=== PATIENT | female | born 1975 | race Caucasian/White ===

== ENCOUNTER 2021-09-23 02:10 | Inpatient (IN) | payer MEDICAID ==
[~2021-09-23] VITALS: Ht 167.6 cm; Wt 65.8 kg
[2021-09-23] VITALS (14 sets, daily range): BP systolic 93–174; BP diastolic 55–106
--- NOTE | 2021-09-23 02:10 | NUR ---
Pt biba from home for potential overdose. Per EMS, 911 called by boyfriend. Boyfriend reports they were in an argument, pt was drinking alcohol and after argument she told her boyfriend she was going to take 90 of her xanax pills. Pt was refilled last 3-4 months ago. Unknown how many pills were in the bottle but pt told her boyfriend "90 pills." Per ems ingestion was around 0200 this am. Pt has hx anxiety, no other hx known. EMS reports pt unresponsive, snoring respirations, 50% O2 sat with capnography 4. Pt BVM to hospital.
[2021-09-23] MEDS ORDERED: INTUBATION KIT MC ONE (02:25)
[2021-09-23] MEDS ORDERED: NALOXONE PFS 2 MG/2 ML SYR ONE (02:35)
[2021-09-23] MEDS ORDERED: NALOXONE 0.4 MG/ML VIAL IVP ONE (02:45)
[2021-09-23] MEDS ORDERED: SUCCINYLCHOLINE CHLORIDE 200 MG/10 ML VIAL IVP ONE (02:45)
[2021-09-23] MEDS ORDERED: ETOMIDATE 20 MG/10 ML VIAL IVP ONE (02:45)
--- NOTE | 2021-09-23 02:48 | NUR ---
Called poison control and spoke with angel Lugo - Tylenol, ASA, Ethanol, Drug screen and Chem 7 and no benzodiazepines.
[2021-09-23] MEDS ORDERED: NACL 0.9% 1,000 ML IV ONE (02:50)
[2021-09-23] MEDS ORDERED: PROPOFOL 1000 MG/100 ML PREMIX 100 ML IV ONE ×2 (02:50→16:31)
[2021-09-23 03:04] LABS: BASOPHILS # (AUTO) 0.1 K/uL (0.00-0.22); BASOPHILS % (AUTO) 1.2 % (0.0-2.0); EOSINOPHILS # (AUTO) 0.1 K/uL (0-0.4); EOSINOPHILS % (AUTO) 1.4 % (0.0-4.0); HEMATOCRIT 37.1 % (36-48); HEMOGLOBIN 12.1 g/dL (12.0-16.0); LYMPHOCYTES # (AUTO) 2.1 K/uL (2.5-16.5); LYMPHOCYTES % (AUTO) 25.6 % (20.5-51.1); MEAN CORPUSCULAR HEMOGLOBIN 28 pg (27-31); MEAN CORPUSCULAR HGB CONC 33 g/dL (33-37); MEAN CORPUSCULAR VOLUME 86.3 fL (80-94); MONOCYTES # (AUTO) 0.5 K/uL (0.8-1.0); MONOCYTES % (AUTO) 6.4 % (1.7-9.3); NEUTROPHILS # (AUTO) 5.3 K/uL (1.8-7.7); NEUTROPHILS % (AUTO) 65.4 % (42.2-75.2); PLATELET COUNT (AUTO) 298 K/uL (140-450); RED CELL DISTRIBUTION WIDTH 14.6 % (11.6-13.7)
[2021-09-23] MEDS ORDERED: ALPR2TAB1 PO (03:05)
[2021-09-23 03:14] LABS: APPEARANCE,URINE CLEAR (CLEAR); BILIRUBIN,URINE NEGATIVE (NEGATIVE); BLOOD, URINE NEGATIVE (NEGATIVE); COLOR,URINE YELLOW (YELLOW); LEUKOCYTE ESTERASE ,URINE NEGATIVE (NEGATIVE); NITRITE, URINE POSITIVE (NEGATIVE); UGLUCOSE NEGATIVE (NEGATIVE)
[2021-09-23 03:25] LABS: RBC,URINE 0-5 /HPF (0-5)
[2021-09-23 03:26] LABS: BARBITURATE, URINE NEGATIVE ng/ml (NEG <=200); BENZODIAZEPINE, URINE POSITIVE ng/mL (NEG <=200); COCAINE, URINE NEGATIVE ng/mL (NEG <=300); OPIATE, URINE NEGATIVE ng/mL (NEG <=2000); PHENCYCLIDINE SCREEN,URINE NEGATIVE ng/mL (NEG <=25)
[2021-09-23 03:27] LABS: CANNABINOID, URINE POSITIVE ng/mL (NEG <=50)
--- NOTE | 2021-09-23 04:25 | NUR ---
to ct via gurjanie, accompanied by rt, rn, and peanut grader
--- NOTE | 2021-09-23 04:50 | NUR ---
RETURNED FROM CT
--- NOTE | 2021-09-23 04:57 | NUR ---
PT TRANSPORTED TO CT AND BACK TO ED10 W/ NO ADVERSE EVENTS PT TOLERATED TRANSPORT WELL WILL CONTINUE TO MONITOR
[2021-09-23 04:58] LABS: ALBUMIN 3.3 g/dL (3.4-5.0); ANION GAP 13.1 (8-16); ASPARTATE AMINOTRANSFERASE 26 U/L (15-37); CARBON DIOXIDE 25.9 mmol/L (21-32); CHLORIDE 109 mmol/L (98-107); CREATININE 0.6 mg/dL (0.6-1.3); GFR ARICAN-AMERICAN 138 mL/min (>90); GLUCOSE 98 mg/dL (74-106); LIPASE 57 U/L (73-393); SODIUM SERUM 144 mmol/L (136-145); TOTAL BILIRUBIN 0.2 mg/dL (0.0-1.0); UREA NITROGEN, BLOOD 20 mg/dL (7-18)
[2021-09-23 05:08] LABS: ACETAMINOPHEN < 0.5 ug/ml (10-30); SALICYLATE < 2.8 mg/dL (2.8-20.0)
--- NOTE | 2021-09-23 05:30 | NUR ---
CHRISTINA SWAB OBTAINED
[2021-09-23] MEDS ORDERED: cefTRIAXone 1,000 MG VIAL ONE (05:56)
--- NOTE | 2021-09-23 07:15 | NUR ---
RECEIVED PT ON AC 18, 500, +5, 50%. WHEELS LOCKED AND VENT PLUGGED INTO RED OUTLET, AMBUBAG AT BEDSIDE, ALARMS ARE SET AND AUDIBLE.
--- NOTE | 2021-09-23 07:20 | NUR ---
report received from kody balderas, transfer of care at this time. RECEIVED PATIENT ASLEEP IN BED, HOB IN SEMI FOWLERS, ON VENT, MAIN CATHETER IN PLACE, PROPOFOL 5MCG INFUSING WELL ON THE RAC 20G.
[2021-09-23] MEDS ORDERED: guaiFENesin DM 200/20 MG-10 ML 10 ML UDC PO PRN (08:35)
[2021-09-23] MEDS ORDERED: ONDANSETRON 4 MG/2 ML VIAL IM/IVP PRN (08:35)
[2021-09-23] MEDS ORDERED: ACETAMINOPHEN 325 MG TAB PO PRN (08:35)
[2021-09-23] MEDS ORDERED: DOCUSATE SODIUM 100 MG GELCAP PO PRN (08:35)
[2021-09-23] MEDS ORDERED: HYDROcodone/APAP 7.5/325 MG 1 TAB PO PRN (08:35)
[2021-09-23] MEDS ORDERED: PANTOPRAZOLE 40 MG INJ VIAL IVP SCH (09:00)
[2021-09-23] MEDS ORDERED: PANTOPRAZOLE 40 MG TABEC PO SCH (09:00)
[2021-09-23 09:02] LABS: PROTHROMBIN TIME 9.7 secs (10.8-13.4)
[2021-09-23 09:13] LABS: CHOL/HDL RATIO 1.9 (1-4.5); FREE T4 (FREE THYROXINE) 0.92 ng/dL (0.76-1.46); PHOSPHORUS 3.9 mg/dL (2.5-4.9); THYROID STIMULATING HORMONE 3.65 uIU/mL (0.34-3.74)
[2021-09-23] MEDS ORDERED: PIPERACILLIN/TAZOBACTAM 3.375 GM VIAL IV ONE ×2 (09:39→13:48)
[2021-09-23] MEDS: PIPERACILLIN/TAZOBACTAM 3.375 GM in DEXTROSE 5% 50 ML IV SCH ×3 (09:45→21:10)
[2021-09-23] MEDS: NACL 0.9% 1,000 ML IV SCH ×2 (09:57→16:58)
--- NOTE | 2021-09-23 10:00 | NUR ---
SPOKE TO DAUGHTER, CONNOR LAZO REGARDING PT STATUS, PT FAMILY VERBALIZED UNDERSTANDING
--- NOTE | 2021-09-23 10:04 | NUR ---
SPOKE TO LILIAM OF POISON CONTROL REGARDING PT UPDATE STATUS, INFORMED OF CURRENT LAB RESULTS, ALCOHOL, CMP, SALICYLATES AND ACETAMINOPHEN. LILIAM STATED THAT SHE DOES NOT BELIEVE LABS SHOULD BE REDRAWN, CONTINUE SUPPORTIVE CARE AND EXTUBATE PT WHEN POSSIBLE
[2021-09-23] MEDS: PANTOPRAZOLE 40 MG INJ VIAL IVP SCH (10:39)
--- NOTE | 2021-09-23 13:33 | NUR ---
PATIENT HAS BEEN SCREENED AND CATEGORIZED LOW NUTRITION RISK. PATIENT WILL BE SEEN WITHIN 7 DAYS OF ADMISSION. 09/29/[address] Addendum: 09/26/21 at [address] [facility] CONSULT HAS BEEN RECEIVED FOR TUBE FEEDING ON 09/25/21. PATIENT HAS BEEN RE-SCREENED HIGH RISK AND WILL BE SEEN TODAY 09/26/21. DAVID MART[address]Z RD
--- NOTE | 2021-09-23 13:40 | NUR ---
PT NOTED WITH INTACT STOOL, SHEETS, GOWN AND DIAPER CHANGED.PT KEPT CLEAN AND DRY
--- NOTE | 2021-09-23 13:56 | NUR ---
MOTHER AT BEDSIDE
--- NOTE | 2021-09-23 16:07 | NUR ---
Patient will be admitted to care of DR TYLER AGUILERA. Admited to ICU. Will go to room ICU 6. Belongings list completed. Report to YELENA JOEL.
--- NOTE | 2021-09-23 16:15 | NUR ---
TRANSFERRED PT FROM ER TO ICU-6. NO COMPLICATIONS. PT ON AC 500, 18, +5 , 50%. VENT PLUGGED INTO RED OUTLET, AMBUBAG AT BEDSIDE, ALARMS ARE SET AND AUDIBLE.
--- NOTE | 2021-09-23 16:15 | NUR ---
RECEIVED PT SEDATED, ET TUBE TO VENT SETTINGS AC/VC VT 500 RATE 18 PEEP 5 FIO2@50%. NG-TUBE INTACT TO LEFT NARE. SINUS RHYTHM ON MONITOR. MAIN CATHETER INTACT AND DRAINING TO BSD. PERIPHERAL IV 20 GAUGE RIGHT AC INTACT AND PATENT INFUSING PROPOFOL @5MCG/KG/MIN. PERIPHERAL IV 20 GAUGE ON LEFT HAND INTACT AND PATENT INFUSING NS @125ML/HR. SAFETY PRECAUTIONS IN PLACE.
[2021-09-23] MEDS: PROPOFOL 1000 MG/100 ML PREMIX 100 ML IV PRN (16:57)
--- NOTE | 2021-09-23 19:32 | NUR ---
ENDORSED TO HAIR DESIGNER NURSE CARLOS FOR CONTINUITY OF CARE.
--- NOTE | 2021-09-23 19:37 | NUR ---
REPORT RECEIVED FOR PATIENT; CURRENTLY INTUBATED (ETT TO VENT) AND SEDATED. CURRENT VENT SETTINGS: AC/VC, VT = 500, RATE = 15, PEEP =5. NG TUBE TO LEFT NARE. HAS NORMAL SALINE RUNNING AT 125ML/HR. 20G PIV, LEFT HAND, 20G PIV, RIGHT AC. HAS MAIN IN PLACE. JUST RECEIVED ORDERS FROM DR. AGUILERA FOR STANDARD GLUCERNA AT 40CC. WILL CONTINUE TO MONITOR
--- NOTE | 2021-09-23 19:46 | NUR ---
PT RECIEVED ON 50% AND WAS (SLOWLY) TITRATED TO 26% FIO2 AND TOLERATING WELL AT THIS TIME SPO2 99% 5 MIN POST TITRATION
[2021-09-23] MEDS ORDERED: hydrALAZINE 20 MG/ML VIAL IVP PRN (20:05)
--- NOTE | 2021-09-23 20:30 | NUR ---
ORDERS RECEIVED FROM DR. AGUILERA TO START TUBE FEEDING. GLUCERNA 1.2 ORDERED 40ML/HR WATER FLUSH 200ML Q 6HRS HOLD IF RESIDUAL >100 RESUME WHEN RESIDUAL <50 WILL CONTINUE TO MONITOR PATIENT
--- NOTE | 2021-09-23 20:45 | NUR ---
RECEIVED PHONE CALL FROM PATIENT'S PCP, PA KHALIL MD ([phone] {CELL PHONE}). PROVIDED UPDATE ON PATIENT CONDITION AND INFORMED PROVIDER THAT WE WOULD PAGE THE MD FOLLOWING THE PATIENT (DR. OGLESBY). WILL CONTINUE TO MONITOR PATIENT
[2021-09-23] MEDS: lisinopriL 20 MG TAB PO SCH (21:00)
[2021-09-23] MEDS: hydrALAZINE 20 MG/ML VIAL IVP PRN (21:39)
--- NOTE | 2021-09-23 21:43 | NUR ---
PATIENT REMAINS WITH ELEVATED BP = 171/104 HR 91 ADMINISTERED HYDRALAZINE 20MG PER EMAR; BP NEEDS TO BE REASSESSED AT 2239. WILL CONTINUE TO MONITOR PATIENT
--- NOTE | 2021-09-23 22:49 | NUR ---
BLOOD PRESSURE REASSESSED AT 2238: BP = 137/77, HR 77 WILL CONTINUE TO MONITOR PATIENT
[2021-09-24] VITALS (24 sets, daily range): BP systolic 120–164; BP diastolic 64–97
[2021-09-24] MEDS: NACL 0.9% 1,000 ML IV SCH ×4 (00:35→21:00)
--- NOTE | 2021-09-24 02:00 | NUR ---
RT AT BEDSIDE, SETTINGS CHANGED FOR VENT; FIO2 IS NOW @26%
[2021-09-24] MEDS: hydrALAZINE 20 MG/ML VIAL IVP PRN ×3 (04:35→21:35)
--- NOTE | 2021-09-24 04:35 | NUR ---
BLOOD PRESSURE NOTED WITH BP = 171/102 AND HR = 86. ADMINISTERED HYDRALAZINE PER EMAR. WILL REASSESS AND CONTINUE TO MONITOR PATIENT
[2021-09-24] MEDS: PIPERACILLIN/TAZOBACTAM 3.375 GM in DEXTROSE 5% 50 ML IV SCH ×3 (04:50→20:59)
--- NOTE | 2021-09-24 05:38 | NUR ---
BLOOD PRESSURE REASSESSED, BP = 128/74, HR = 91 WILL CONTINUE TO MONITOR BP AND BLOOD PRESSURE
[2021-09-24 06:22] LABS: BASOPHILS % (AUTO) 0.4 % (0.0-2.0); EOSINOPHILS % (AUTO) 0.2 % (0.0-4.0); HEMATOCRIT 35.2 % (36-48); HEMOGLOBIN 11.8 g/dL (12.0-16.0); LYMPHOCYTES # (AUTO) 0.5 K/uL (2.5-16.5); LYMPHOCYTES % (AUTO) 5.2 % (20.5-51.1); MEAN CORPUSCULAR HEMOGLOBIN 29 pg (27-31); MEAN CORPUSCULAR HGB CONC 33 g/dL (33-37); MEAN CORPUSCULAR VOLUME 85.7 fL (80-94); MONOCYTES # (AUTO) 0.3 K/uL (0.8-1.0); MONOCYTES % (AUTO) 3.3 % (1.7-9.3); NEUTROPHILS # (AUTO) 9.1 K/uL (1.8-7.7); NEUTROPHILS % (AUTO) 90.9 % (42.2-75.2); PLATELET COUNT (AUTO) 220 K/uL (140-450); RED BLOOD CELL COUNT(AUTO) 4.11 MIL/uL (4.20-5.40); RED CELL DISTRIBUTION WIDTH 14.8 % (11.6-13.7)
[2021-09-24 06:41] LABS: ANION GAP 11.6 (8-16); CREATININE 0.5 mg/dL (0.6-1.3); POTASSIUM 3.6 mmol/L (3.5-5.1)
--- NOTE | 2021-09-24 07:10 | NUR ---
SBAR REPORT RECEIVED FROM JULES JOEL, ALL CARES ASSUMED. PT INTUBATED, SEDATED WITH DIPRIVAN 5MCG.
--- NOTE | 2021-09-24 07:13 | NUR ---
ENDORSED CARE OF PATIENT TO DAY SHIFT (MARYCRUZ MEJIA).
[2021-09-24 08:07] LABS: T4 (THYROXINE) 8.3 ug/dL (4.5-12.0)
--- NOTE | 2021-09-24 08:30 | NUR ---
PATIENT SEDATE. PUPILS 2MM NONREACTIVE. MOVED LOWER EXTREMITIES WITH TACTILE STIMULI. NO COMMANDS FOLLOWED. HEART SOUNDS REGULAR. MONITOR SR. RIGHT AC #20G WITH PROPOFOL AT 5MCG/KG/MIN, LEFT HAND #20G WITH NS AT 125ML/HR. ETT TO VENT AC/VC FIO2 21%/VT 500/ RATE 18/ PEEP 5. SAO2 98%. NGT RIGHT NARE WITH TF GLUCERNA AT 40ML/HR. NO RISIDUAL. ACTIVE BOWEL SOUNDS IN ALL QUADRANTS. MAIN IN PLACE WITH CLEAR YELLOW URINE.
[2021-09-24] MEDS: PANTOPRAZOLE 40 MG INJ VIAL IVP SCH (08:33)
[2021-09-24] MEDS: lisinopriL 20 MG TAB PO SCH (08:33)
[2021-09-24] MEDS ORDERED: PANTOPRAZOLE 40 MG INJ VIAL IVP SCH (09:00)
--- NOTE | 2021-09-24 09:40 | NUR ---
PATIENTS MOTHER AND FATHER HERE TO SEE PATIENT. QUESTIONS ANSWERED. DAUGHTER CALLED AND UPDATED, QUESTIONS ANSWERED.
--- NOTE | 2021-09-24 09:55 | NUR ---
DR. OGLESBY ROUNDING AT BEDSIDE, NO NEW ORDERS AT THIS TIME. DR OGLESBY UPDATING FAMILY.
[2021-09-24] MEDS ORDERED: IMI50 PO (11:10)
[2021-09-24] MEDS ORDERED: HYDR10TA1 PO (11:15)
[2021-09-24] MEDS ORDERED: TIZA4TAB11 PO (11:18)
[2021-09-24] MEDS ORDERED: ACYC400T14 PO ×2 (11:28)
[2021-09-24] MEDS ORDERED: GABA400C PO ×2 (11:37→11:39)
[2021-09-24] MEDS ORDERED: LYR50 PO (11:42)
[2021-09-24] MEDS ORDERED: FLUDROCORTISONE 0.1 MG TAB PO SCH (13:00)
[2021-09-24] MEDS: PROPOFOL 1000 MG/100 ML PREMIX 100 ML IV PRN (15:40)
[2021-09-24] MEDS: DEXMEDETOMIDINE HCL 400 MCG in NACL 0.9% 96 ML IV PRN ×2 (17:16→23:22)
--- NOTE | 2021-09-24 19:16 | NUR ---
REPORT RECEIVED FROM DAY SHIFT, PATIENT NOW ON PRECEDEX 1 MCG. WILL CONTINUE TO MONITOR PATIENT
--- NOTE | 2021-09-24 19:21 | NUR ---
SBAR REPORT GIVEN TO JULES JOEL, ALL CARES ENDORSED.
--- NOTE | 2021-09-24 20:36 | NUR ---
CALL RECEIVED FROM PATIENT'S MOTHER WANTING UPDATE ON PATIENT. PATIENT'S MOTHER ALSO STATES THAT PATIENT HAS A HISTORY OF A "SPINE PROBLEM", "PROBLEM AND PAIN WITH DISC IN MID-BACK, LOWER BACK, AND NECK". ALL QUESTIONS ANSWERED. MOTHER PROVIDED CONTACT INFO FOR HERSELF AND PATIENT'S FATHER. MOM: ROBER: [phone] FATHER: ACACIA JACKSON: [phone] WILL CONTINUE TO MONITOR PATIENT
[2021-09-24] MEDS: HYDROCORTISONE NA SUCC 100 MG/2 ML VIAL IV SCH (20:59)
[2021-09-24] MEDS: PREGABALIN 50 MG CAP PO SCH (21:01)
--- NOTE | 2021-09-24 21:21 | NUR ---
PATIENT NOTED WITH BP = 156/100 HR = 94. ADMINISTERED HYDRALAZINE PER EMAR AT TIME (2135) OF MEDICATION ADMINISTRATION, BP = 164/100 WILL CONTINUE TO MONITOR BP AND PATIENT
--- NOTE | 2021-09-24 21:39 | NUR ---
HAI, PT. FRIEND AND DPOA CALLED AND ASKED FOR AN UPDATE REGARDING PATIENT. PROVIDED HER WITH PT. CURRENT CONDITION. SHE STATED THAT SHE CALLED EARLIER AND SHE'S AWARE THAT PT. IS SEDATED AND ON VENTILATOR. I TOLD HER THAT PT. CONDITON STILL THE SAME ON VENTILATOR AND ON PRECEDEX DRIP FOR SEDATION, SLEEPING AT THIS TIME, MEDICATIONS GIVE ORDERED.HAI SAID THANK YOU AND SHE STATED SHE WILL CALL AGAIN TOMORROW.
--- NOTE | 2021-09-24 22:35 | NUR ---
BLOOD PRESSURE REASSESSED. 126/76 HR = 86 PATIENT REMAINS STABLE, WILL CONTINUE TO MONITOR PATIENT
[2021-09-24] MEDS ORDERED: DEXMEDETOMIDINE HCL 100 MCG/ML 2 ML VIAL IV ONE ×2 (23:12→23:15)
[2021-09-25] VITALS (28 sets, daily range): BP systolic 111–183; BP diastolic 61–106
--- NOTE | 2021-09-25 02:02 | NUR ---
GASTRIC RESIDUAL >120CC; FEEDING HELD PER MD ORDERS, WILL RE-EVALUATE PATIENT AND RE-CHECK RESIDUAL AT 0245. IF RESIDUAL <50CC WILL RESUME FEEDING. WILL CONTINUE TO MONITOR PATIENT.
--- NOTE | 2021-09-25 04:40 | NUR ---
PERIPHERAL IV, RIGHT AC, LEAKING AND NOT INFUSING PRECEDEX. IV LINE DISCONTINUED. PRECEDEX DRIP TRANSFERRED TO LEFT HAND PERIPHERAL IV. NURSING STAFF ATTEMPTED TO START ADDITIONAL IV ACCESS. NOT SUCCESSFUL MESSAGE SENT TO DR. OGLESBY FOR ORDERS FOR PICC LINE AT 0500, NO RESPONSE OF 05. PATIENT REQUIRES ADDITIONAL IV ACCESS FOR ZOSYN, IVF, AND SOLU-CORTEF. WILL CONTINUE TO MONITOR PATIENT
[2021-09-25] MEDS ORDERED: DEXMEDETOMIDINE HCL 100 MCG/ML 2 ML VIAL IV ONE (04:55)
[2021-09-25] MEDS: PIPERACILLIN/TAZOBACTAM 3.375 GM in DEXTROSE 5% 50 ML IV SCH ×3 (05:00→20:43)
[2021-09-25] MEDS: HYDROCORTISONE NA SUCC 100 MG/2 ML VIAL IV SCH ×3 (05:00→20:43)
[2021-09-25] MEDS: DEXMEDETOMIDINE HCL 400 MCG in NACL 0.9% 96 ML IV PRN ×2 (05:29→23:33)
--- NOTE | 2021-09-25 05:55 | NUR ---
RECEIVED MESSAGE FROM DANETTE BOBO FOR PICC LINE. WILL PRINT CONSENT FORM ORDERS FOR PICC PLACED
--- NOTE | 2021-09-25 06:00 | NUR ---
AM CARE, RAFAEL CARE, ORAL CARE PROVIDED. PROVIDED SAFE AND QUIET ENVIRONMENT. WILL CONT. TO MONITOR.
--- NOTE | 2021-09-25 06:00 | NUR ---
IV LINE PERIPHERAL 22G STARTED AT THE LEFT UPPER ARM AND WITH GOOD BACK FLOW. ATTACHED THE PRECEDEX DRIP ON THE SITE AND WILL ENDORSE TO THE NEXT SHIFT.
--- NOTE | 2021-09-25 07:15 | NUR ---
RECEIVED REPORT FROM MARYCRUZ CARRASCO.
[2021-09-25 07:16] LABS: BASOPHILS % (AUTO) 0.1 % (0.0-2.0); EOSINOPHILS % (AUTO) 0.1 % (0.0-4.0); LYMPHOCYTES # (AUTO) 0.2 K/uL (2.5-16.5); LYMPHOCYTES % (AUTO) 3.2 % (20.5-51.1); MEAN CORPUSCULAR HEMOGLOBIN 29 pg (27-31); MEAN CORPUSCULAR HGB CONC 33 g/dL (33-37); MEAN CORPUSCULAR VOLUME 85.7 fL (80-94); MONOCYTES # (AUTO) 0.1 K/uL (0.8-1.0); MONOCYTES % (AUTO) 1.9 % (1.7-9.3); NEUTROPHILS # (AUTO) 6.6 K/uL (1.8-7.7); NEUTROPHILS % (AUTO) 94.7 % (42.2-75.2); PLATELET COUNT (AUTO) 176 K/uL (140-450); RED CELL DISTRIBUTION WIDTH 14.5 % (11.6-13.7)
[2021-09-25 07:18] LABS: ANION GAP 11.3 (8-16); CARBON DIOXIDE 19.7 mmol/L (21-32); CREATININE 0.3 mg/dL (0.6-1.3)
--- NOTE | 2021-09-25 07:20 | NUR ---
ENDORSED CARE OF PATIENT TO DAY SHIFT (ESTEPHANIE, RN).
--- NOTE | 2021-09-25 08:30 | NUR ---
PATIENT AROUSES TO TACTILE STIMULI. ATTEMPTS TO SIT UP. REORIENTED TO PLACE. MOVES ALL EXTREMITIES. GRIPPED HAND TO COMMAND BILATERALLY. BILATERAL WRIST RESTRAINTS IN PLACE FOR PREVENTION OF PULLING TUBES/LINES. LEFT HAND WITH 1-2+ EDEMA. RIGHT HAND WITH TRACE EDEMA. PUPILS 3MM, EQUAL AND REACTIVE. HEART SOUNDS REGULAR. MONITOR SINUS RHYTHM. #20G LEFT HAND WITH NS AT 125CC/HR, #20G LEFT AC WITH PRECEDEX AT 1.2MCG/KG/HR. ANT/LAT BREATH SOUNDS WITH RHONCHI BILATERALLY. SAO2 100%. ETT TO VENT AC/VC MODE FIO2 21%/VT 500/RATE 18/PEEP 5. SUCTIONED SCANT AMOUNT OF WHITE SECRETIONS. NGT LEFT NARE WITH 70CC RISIDUAL. GLUCERNA INFUSING AT 40CC/HR. ACTIVE BOWEL SOUNDS IN ALL QUADRANTS. MAIN IN PLACE WITH CLEAR YELLOW URINE. MOTHER CALLED AND UPDATED ON CONDITION AND TREATMENT PLAN.
[2021-09-25] MEDS: NACL 0.9% 1,000 ML IV SCH ×2 (08:35→19:30)
[2021-09-25] MEDS: PANTOPRAZOLE 40 MG INJ VIAL IVP SCH (08:39)
[2021-09-25] MEDS: tiZANidine 4 MG TAB PO SCH (08:41)
[2021-09-25] MEDS: PREGABALIN 50 MG CAP PO SCH ×2 (08:41→20:44)
[2021-09-25] MEDS: lisinopriL 20 MG TAB PO SCH (08:41)
[2021-09-25] MEDS ORDERED: HYDROCORTISONE 10 MG TAB PO SCH (09:00)
[2021-09-25] MEDS ORDERED: HYDROCORTISONE 10 MG PO SCH (09:00)
[2021-09-25] MEDS ORDERED: POTASSIUM CHLORIDE 40 MEQ, LIDOCAINE MPF 1% 25 MG in NACL 0.9% 250 ML IV SCH (09:30)
[2021-09-25] MEDS: hydrALAZINE 20 MG/ML VIAL IVP PRN ×2 (09:49→15:25)
--- NOTE | 2021-09-25 10:00 | NUR ---
DR. OGLESBY HERE TO SEE PATIENT. DISCUSSED HIGH BP, POTASSIUM AND CALCIUM LEVELS.
--- NOTE | 2021-09-25 13:15 | NUR ---
CONSENT OBTAINED AND MIDLINE CATHETER PLACED BY MICHOACANO PICC LINE RN. PATIENT TOLERATED WELL.
[2021-09-25] MEDS ORDERED: lisinopriL 10 MG TAB PO SCH (13:40)
--- NOTE | 2021-09-25 14:00 | NUR ---
DR. LEON HERE TO SEE PATIENT AND UPDATED. WILL LEAVE PATIENT INTUBATED TODAY AND BEGIN WEANING IN AM.
[2021-09-25] MEDS: amLODIPine 5 MG TAB PO SCH (14:08)
--- NOTE | 2021-09-25 15:30 | NUR ---
PATIENT WAKING WITH AGITATION. FLACC 4, SQUIRMING, CRYING, GRIMACE, RESTLESS. NORCO 7.5MG/325MG 1 TAB GIVEN PER NGT.FATHER AT BEDSIDE AND UPDATED. MOTHER CALLED ON PHONE AND UPDATED.
--- NOTE | 2021-09-25 19:30 | NUR ---
REPORT GIVEN TO TOOL DESIGN DRAFTSPERSON RN. PATIENT STABLE
--- NOTE | 2021-09-25 20:00 | NUR ---
PATIENT ABLE TO RESPOND TO TOUCH AND MOVEMENT. MEDICAL HISTORY DIAGNOSIS OSTEOARTHRITIS, ADRENAL INSUFFICIENCY, ANEMIC, DEGENERATING DISC. PATIENT LUNGS WITH RHONCHI SOUNDS. SKIN INTACT, NO WOUNDS OBSERVED. PRECEDEX 0.9MCG/KG/MIN. NORMAL SALINE DRIP 125ML/HR. VITAL SIGNS HR 69 SP02 100 RR 18 BP 149/101. PATIENT GLUCERNA FEEDING 45ML/HR. VENT SETTINGS FI02 21 VT 500 RR 18 PEEP 5. SOFT RESTRAINTS IN PLACE. PUPILS NON REACTIVE TO LIGHT AT THIS TIME. HEART SOUNDS NORMAL.
--- NOTE | 2021-09-25 20:56 | NUR ---
CHECKED PATIENT RESIDUAL 100ML. HELD FEEDING PER MD ORDER.
--- NOTE | 2021-09-25 21:54 | NUR ---
PT. MOM CALLED, ASKED ABOUT PT. HOLLY AND I PROVIDED HER WITH PT. CONDITION UPDATE. SHE STATED SHE WILL CALL BACK AGAIN IN THE MORNING.
--- NOTE | 2021-09-25 22:04 | NUR ---
PATIENT RESIDUAL 115ML. WILL CONTINUE TO HOLD FEEDING PER MD ORDER. WILL CONTINUE TO MONITOR.
--- NOTE | 2021-09-25 22:17 | NUR ---
PT. DTR VENICE RYAN CALLED, ASKED ABOUT HER MOM AND I PROVIDED HER WITH THE UPDATE WITH HER MON CONDITION.
[2021-09-25] MEDS: ZOLPIDEM 5 MG TAB PO PRN (22:55)
--- NOTE | 2021-09-25 22:55 | NUR ---
PT. PRECEDEX DRIP INCREASED TO 1 MCG/KG/HR DUE TO PT. AGITATION, AWAKE, TRYING TO GET UP ON THE BED, TRYING TO PULL OUT TUBES AND VENTILATOR KEEPS ON ALARMING. RT WELL AT THE BEDSIDE TRYING TO CALM HER DOWN, ALTERNATIVE MEASURES APPLIED, TALKING TO HER BUT SHE STRONGLY REFUSED. WILL CONT. TO MONITOR.
[2021-09-26] VITALS (30 sets, daily range): BP systolic 138–187; BP diastolic 78–108
--- NOTE | 2021-09-26 00:10 | NUR ---
PT. ELDEST DAUGHTER CONNOR CALLED AND ASKED FOR UPDATE. I TOLD HER THAT HER MOM IS SLEEPING AT THIS TIME AND CONT. ON SEDATION DRIP, WAKE UP ONCE IN WHILE AND BACK TO SLEEP. SHE ASKED ABOUT THE TUBE AND VENT AND I MENTIONED THAT THERE IS A PLAN TO WEAN HER OFF FROM VENT TOMORROW AND MIGHT BE EXTUBATED, PER DAY SHIFT NURSE. DAUGHTER STATED, THAT SOUNDS GOOD.
--- NOTE | 2021-09-26 00:18 | NUR ---
PATIENT BP 163/93. PRN HYDRALAZINE 10MG GIVEN VIA IVP. WILL CONTINUE TO MONITOR.
[2021-09-26] MEDS: NACL 0.9% 1,000 ML IV SCH ×3 (00:35→16:57)
--- NOTE | 2021-09-26 00:45 | NUR ---
PT. AWAKE, TRYING TO GET OUT OF BED, TRYING TO PULL OUT TUBES AND UNCOOPERATIVE AND VENT KEEPS ON ALARMING. INCREASED PRECEDEX DRIP TO 1.2 MCH/KG/HR. REPOSITIONED, BED PLACED ON THE LOW HEIGHT FOR SAFETY. WILL CONT. TO MONITOR.
--- NOTE | 2021-09-26 04:31 | NUR ---
LAB CAME AND DRAWN CBC AND BMP.
[2021-09-26] MEDS: HYDROCORTISONE NA SUCC 100 MG/2 ML VIAL IV SCH ×3 (05:00→21:12)
[2021-09-26] MEDS: PIPERACILLIN/TAZOBACTAM 3.375 GM in DEXTROSE 5% 50 ML IV SCH ×3 (05:00→21:12)
[2021-09-26] MEDS ORDERED: DEXMEDETOMIDINE HCL 100 MCG/ML 2 ML VIAL IV ONE (05:39)
[2021-09-26 05:42] LABS: BASOPHILS % (AUTO) 0.3 % (0.0-2.0); HEMOGLOBIN 10.3 g/dL (12.0-16.0); LYMPHOCYTES # (AUTO) 0.2 K/uL (2.5-16.5); LYMPHOCYTES % (AUTO) 3.7 % (20.5-51.1); MEAN CORPUSCULAR HEMOGLOBIN 28 pg (27-31); MEAN CORPUSCULAR HGB CONC 33 g/dL (33-37); MEAN CORPUSCULAR VOLUME 85.6 fL (80-94); MONOCYTES # (AUTO) 0.2 K/uL (0.8-1.0); MONOCYTES % (AUTO) 2.3 % (1.7-9.3); NEUTROPHILS # (AUTO) 6.2 K/uL (1.8-7.7); NEUTROPHILS % (AUTO) 93.7 % (42.2-75.2); PLATELET COUNT (AUTO) 175 K/uL (140-450); RED BLOOD CELL COUNT(AUTO) 3.62 MIL/uL (4.20-5.40); RED CELL DISTRIBUTION WIDTH 14.6 % (11.6-13.7); WHITE BLOOD COUNT (AUTO) 6.6 K/uL (4.8-10.8)
[2021-09-26 05:52] LABS: ANION GAP 11.5 (8-16); CREATININE 0.4 mg/dL (0.6-1.3); POTASSIUM 3.5 mmol/L (3.5-5.1)
--- NOTE | 2021-09-26 06:38 | NUR ---
CALLED DR. OGLESBY BECAUSE PT. IS WIDE AWAKE, UNCOOPERATIVE, KICKING US NURSES AT THE BEDSIDE. PULLED OUT THE CONNECTION OF THE ETT EVEN WITH BILATERAL SOFT WRIST RESTRAINT IN PLACED. RESPIRATORY ALREADY HELPED TO CONTROL THE PT. BUT PT. NOT WILLING TO LISTEN AND COOPERATE. DR. OGLESBY ORDERED ATIVAN 2MG X 1 NOW AND HE WILL SEE THE PT. IN AN HOURS. WILL ENDORSE TO THE NEXT SHIFT.
[2021-09-26] MEDS ORDERED: LORazepam 2 MG/ML VIAL IVP PRN (06:42)
[2021-09-26] MEDS ORDERED: LORazepam 2 MG/ML VIAL ONE ×2 (06:44→12:18)
--- NOTE | 2021-09-26 06:47 | NUR ---
PATIENT BP 153/90. PATIENT RESTLESS AND TRYING TO PULL OUT TUBINGS. MARYCRUZ CARRASCO CALLED DR. OGLESBY AND ONE TIME ORDER OF ATIVAN 2MG.
[2021-09-26] MEDS ORDERED: MORPHINE SULFATE 2 MG/ML SYR IVP PRN (07:10)
--- NOTE | 2021-09-26 07:30 | NUR ---
RECEIVED REPORT FROM DANILO JOEL PT IN BED ETT TO VENT AC/VC 21% FIO2 500 TN RATE18 PEEP5 O2 SAT 99% PT. IS RESTLESS AGITATED TRY TO PULL OUT HER TUBE,AND KICKING HER SKIN DRY AND WARM TO TOUCH SOFT WRIST RESTAIN ARE ON, MAIN CATH TO GRAVITY DRAINAGE.
--- NOTE | 2021-09-26 07:30 | NUR ---
DR. OGLESBY AT BED SIDE ORDER RECEIVED TO GIVE MORPHINE 2MG IVP .
[2021-09-26] MEDS: PANTOPRAZOLE 40 MG INJ VIAL IVP SCH (08:38)
[2021-09-26] MEDS: PREGABALIN 50 MG CAP PO SCH ×2 (08:39→21:30)
[2021-09-26] MEDS: tiZANidine 4 MG TAB PO SCH (08:40)
[2021-09-26] MEDS: amLODIPine 5 MG TAB PO SCH (08:40)
[2021-09-26] MEDS: lisinopriL 20 MG TAB PO SCH (08:46)
--- NOTE | 2021-09-26 10:43 | NUR ---
DC PLANN[age] YRS OLD FEMALE PATIENT WAS ADMITTED FROM HOME WITH A DX OF ALOC DRUG OVERDOSE. PATIENT HAS A HX OF PSYCHIATRIC DISORDER, DRUG USE AND THYROID DISEASE. PER SIGNIFICANT OTHER TOOK 90 PILLS OF HER 2MG XANAX. PATIENT WAS INTUBATED SEDATED ON 09/23 , ON PRECEDEX DRIP AND ZOSYN IV ABX. PULMO FOLLOWING. DC PLAN PER PATIENT RESPOND TO THE TREATMENT. CM TO FOLLOW Addendum: 09/28/21 at 1237 by Meg Mcbride RN DC PLANNING: S/P EXTUBATION DOING WELL. CONTINUE IVF, AND HOME MEDS. DC PLAN AWAITING FOR THE TELE PSYCH TO EVALUATE PATIENT. CM TO FOLLOW
--- NOTE | 2021-09-26 11:15 | NUR ---
DR. LEON AT [facility] RECEIVED.
--- NOTE | 2021-09-26 11:30 | NUR ---
PER PT EXTUBATED AND PLACED ON 2L NC. PT AWAKE ABLE TO FOLLOW SIMPLE COMMANDS. LEAK HEARD AROUND CUFF WHEN DEFLATED. NURSE BEDSIDE. NO STRIDOR HEARD ON AUSCULTATION. WILL CONTINUE TO MONITOR.
[2021-09-26] MEDS ORDERED: QUEtiapine FUMARATE 25 MG TAB ONE (13:01)
--- NOTE | 2021-09-26 13:16 | NUR ---
09/26/21 RD INITIAL ASSESSMENT COMPLETED PLEASE REFER TO NUTRITION ASSESSMENT UNDER CARE ACTIVITY FOR ESTIMATED NUTRITIONAL NEEDS. 1. IF PT PASSES SWALLOW EVAL, START PO DIET WITH CLEAR LIQUID DIET AND GRADUALLY ADVANCE TO REGULAR DIET WITH TEXTURE MODIFICATION PER SLT RECOMMENDATIONS -RECOMMEND ORAL SUPPLEMENTS FOR NUTRITION SUPPORT 2. IF PT FAILS SWALLOW EVAL, RECOMMEND CONTINUING TUBE FEEDING -RECOMMEND JEVITY 1.2 @ 50 ML/HR WITH PROSOURCE TID WITH FWF [address] TO FOLLOW-UP 2-3 DAYS, HIGH RISK YULIYA MARTINEZ RD
[2021-09-26] MEDS ORDERED: HALOPERIDOL IM 5 MG/ML VIAL IM PRN ×2 (13:50→14:00)
[2021-09-26] MEDS ORDERED: HALOPERIDOL IM 5 MG/ML VIAL IM SCH (14:01)
[2021-09-26] MEDS: DEXMEDETOMIDINE HCL 400 MCG in NACL 0.9% 96 ML IV PRN ×2 (16:58→21:08)
[2021-09-26] MEDS: hydrALAZINE 20 MG/ML VIAL IVP PRN ×2 (17:12→20:54)
--- NOTE | 2021-09-26 17:12 | NUR ---
BP 187/95 HR63 MEDICATION GIVEN ORDERED.
--- NOTE | 2021-09-26 17:46 | NUR ---
PT ASLEEP AT THIS TIME NO RESPIRATORY DISTRESS NOTED. SPO2 98% ON ROOM AIR.
--- NOTE | 2021-09-26 19:30 | NUR ---
RECEIVED PT. SLEEPING AT THIS TIME. V/S 168/96, HR 70, RR 22. PT. ON ROOM AIR WITH O2 SAT 99%. IV SITE RIGHT ARM MIDLINE, ON PRECEDEX DRIP 1.2 MCG/KG/HR, NS 125 ML/HR. PT. NPO EXCEPT MEDS. PROVIDED SAFE AND QUIET ENVIRONMENT. CONT. ON BILATERAL SOFT WRIST RESTRAINT WITH NO S/S OF INJURY. WILL CONT. TO MONITOR
--- NOTE | 2021-09-26 20:27 | NUR ---
PT. MOM "ROBER " CALLED, ASKED ABOUT PT. AND I PROVIDED HER WITH THE UPDATE. SHE SAID SHE WILL COME TO VISIT HER AGAIN NIKOLAS. AT 0800.
--- NOTE | 2021-09-26 21:25 | NUR ---
DTR.MERRIKC RYAN CALLED,ASKED FOR UPDATE AND PROVIDED UPADTE. SHE WILL COME NIKOLAS. TO VISIT.
[2021-09-26] MEDS: QUEtiapine FUMARATE 25 MG TAB PO SCH (21:31)
--- NOTE | 2021-09-26 21:54 | NUR ---
HYDRALAZINE 10 MG IVP PRN GIVEN AT 2053 DUE TO BP 164/105. RE-EVALUATE AT THIS TIME, BP 138/84. PT. SLEEPING AT THIS TIME.
--- NOTE | 2021-09-26 21:56 | NUR ---
DTR. VEINCE RYAN CALLED AND ASKED FOR UPDATE. PROVIDED HER WITH HER MOM CURRENT CONDITION AND SHE WILL COME TO VISIT ALSO TOMORROW.
[2021-09-26] MEDS: POTASSIUM CHLORIDE 10 MEQ TABER PO PRN (22:00)
--- NOTE | 2021-09-26 22:07 | NUR ---
PT. K LEVEL 3.5 AND GIVEN KCL 40MEQ PO PRN.
[2021-09-27] VITALS (19 sets, daily range): BP systolic 123–173; BP diastolic 74–96
[2021-09-27] MEDS: NACL 0.9% 1,000 ML IV SCH ×4 (00:35→20:49)
[2021-09-27] MEDS: DEXMEDETOMIDINE HCL 400 MCG in NACL 0.9% 96 ML IV PRN ×2 (02:12→07:05)
[2021-09-27] MEDS: HYDROCORTISONE NA SUCC 100 MG/2 ML VIAL IV SCH ×3 (05:00→20:46)
[2021-09-27] MEDS: PIPERACILLIN/TAZOBACTAM 3.375 GM in DEXTROSE 5% 50 ML IV SCH ×2 (05:00→13:00)
[2021-09-27 06:06] LABS: BASOPHILS % (AUTO) 0.2 % (0.0-2.0); HEMATOCRIT 33.9 % (36-48); HEMOGLOBIN 11.3 g/dL (12.0-16.0); LYMPHOCYTES # (AUTO) 0.3 K/uL (2.5-16.5); LYMPHOCYTES % (AUTO) 4.4 % (20.5-51.1); MEAN CORPUSCULAR HEMOGLOBIN 28 pg (27-31); MEAN CORPUSCULAR HGB CONC 33 g/dL (33-37); MEAN CORPUSCULAR VOLUME 85.5 fL (80-94); MONOCYTES # (AUTO) 0.1 K/uL (0.8-1.0); MONOCYTES % (AUTO) 2.4 % (1.7-9.3); NEUTROPHILS # (AUTO) 5.3 K/uL (1.8-7.7); PLATELET COUNT (AUTO) 178 K/uL (140-450); RED BLOOD CELL COUNT(AUTO) 3.97 MIL/uL (4.20-5.40); RED CELL DISTRIBUTION WIDTH 14.6 % (11.6-13.7); WHITE BLOOD COUNT (AUTO) 5.7 K/uL (4.8-10.8)
[2021-09-27 06:09] LABS: ANION GAP 11.8 (8-16); CARBON DIOXIDE 26.6 mmol/L (21-32); CREATININE 0.5 mg/dL (0.6-1.3); POTASSIUM 3.4 mmol/L (3.5-5.1)
--- NOTE | 2021-09-27 07:30 | NUR ---
ALL CARE ENDORSED TO DAY SHIFT RN FOR CONTINUITY OF CARE.
--- NOTE | 2021-09-27 08:15 | NUR ---
VISIT BY MOM AT BED SIDE. TOOK ALL OF HER SCHEDULE MEDS WITH APPLE SAUCE WITH NO COMPLICATION.
[2021-09-27] MEDS: PANTOPRAZOLE 40 MG INJ VIAL IVP SCH (08:16)
[2021-09-27] MEDS: QUEtiapine FUMARATE 25 MG TAB PO SCH ×2 (08:17→20:48)
[2021-09-27] MEDS: PREGABALIN 50 MG CAP PO SCH ×2 (08:17→20:47)
[2021-09-27] MEDS: amLODIPine 5 MG TAB PO SCH ×2 (08:17→09:00)
[2021-09-27] MEDS: lisinopriL 20 MG TAB PO SCH ×2 (08:18→09:00)
[2021-09-27] MEDS: tiZANidine 4 MG TAB PO SCH (08:18)
--- NOTE | 2021-09-27 08:50 | NUR ---
JAMES FROM POISON CONTROL CALLED TO UPDATE PATIENT CONDITION. PT. IS EXTUBATED SHE IS OUT FROM POISON CONTROL LIST.
--- NOTE | 2021-09-27 09:15 | NUR ---
SEEN BY DR. OGLESBY AT BED SIDE, ORDER RECEIVED, WILL HAVE PSY CONSULT AND DOWN GRADE TO TELE TO DAY AFTER OFF FROM PRES CIDEX.
--- NOTE | 2021-09-27 09:15 | NUR ---
CONTINUE TO TITRATE DOWN THE PRECEDEX , SLEEPING,
--- NOTE | 2021-09-27 11:00 | NUR ---
D/C THE PRECEDEX PT. SLEEPING EASILY AWAKE BY NAME, V/S WITH IN NORMAL LIMIT.
--- NOTE | 2021-09-27 17:06 | NUR ---
P.T. NOTES P.T. EVAL COMPLETED; REFER TO EVAL FOR DETAILS.
--- NOTE | 2021-09-27 19:21 | NUR ---
CONDITION STABLE ,REPORT GIVE TO
--- NOTE | 2021-09-27 19:30 | NUR ---
RECEIVED REPORT FROM MARY JOEL. PT IN STATED CONDITION. ON ASSESSMENT PT TEMPERATURE WAS 99.2 ORALLY COVERS REMOVED PT HAD SEVERAL BLANKETS ON. SHE WAS NOT HAPPY WITH THE BLANKETS BEING REMOVED. PT WAS EDUCATED ON THE WHY THE BLANKETS HAD TO BE REMOVED . SHE COMPLAINED ABOUT BEING COLD, SHE WAS TOLD TO CHOOSE THE COVER SHE WANTED THE MOST. SHE CHOSE HER BROWN COVER AND WAS SATISFIED. SHE HAD A MODERATED SIZE BOWN STOOL AND WAS CLEANED UP. SHE REQUESTED A AMBIEN FOR SLEEP. PROMISED TO HER WHEN MEDS ARE DUE. HER MOTHER AND YOUNGEST DAUGHTER CALLED AND WAS GIVEN UPDATES ON THE PATIENT.
[2021-09-27] MEDS: ZOLPIDEM 5 MG TAB PO PRN (20:47)
--- NOTE | 2021-09-27 23:19 | NUR ---
AT 2300 PT ALREADY HAS 1500CC CLEAR WWTER COLORED URINE OUTPUT.
[2021-09-28 00:17] VITALS: BP 140/80
--- NOTE | 2021-09-28 03:20 | NUR ---
PT AWAKEN COMPLAINING I WANT TO MOVE OUT OF THIS ROOM. EXPLAINED TO PT THAT SHE WOULD BE MOVING ON THE NEXT SHIFT. THERE WERE NO BEDS AVAILABLE TONIGHT . SHE THEN STATED i HAVE A HEADACHE. TYLENOL WAS GIVEN.PT CALLED OUT AGAIN REQUESTING PUDDING. SHE WAS INFORMED THAT THERE IS AN ORDER FOR HER TO BE NPO UNTIL AFTER HER SWALLOW EVAL. SHE REQUESTED TO KNOW WHEN IT WOULD TAKE PLACE. SHE WAS TOLD IN THE MORNING. SHE THEN REQUESTED THE DOCTOR BE CALLED TO SEE IF SHE COULD HAVE PUDDING. CHECKED WITH [facility] NURSE AND SHE SAID TO TELL PT IT ONLY A COUPLE OF HOURS, AND SHE WILL HAVE HER SWALLOW EVAL. WHEN GOING BACK TO PT'S BEDSIDE HER EYES WERE CLOSED
[2021-09-28 05:01] LABS: ANION GAP 8.6 (8-16); CARBON DIOXIDE 29.2 mmol/L (21-32); CREATININE 0.5 mg/dL (0.6-1.3)
[2021-09-28 05:07] LABS: POTASSIUM 2.8 mmol/L (3.5-5.1)
[2021-09-28 05:11] LABS: BASOPHILS % (AUTO) 0.2 % (0.0-2.0); HEMATOCRIT 30.6 % (36-48); HEMOGLOBIN 10.2 g/dL (12.0-16.0); LYMPHOCYTES # (AUTO) 0.5 K/uL (2.5-16.5); LYMPHOCYTES % (AUTO) 6.6 % (20.5-51.1); MEAN CORPUSCULAR HEMOGLOBIN 28 pg (27-31); MEAN CORPUSCULAR HGB CONC 33 g/dL (33-37); MEAN CORPUSCULAR VOLUME 84.6 fL (80-94); MONOCYTES # (AUTO) 0.3 K/uL (0.8-1.0); MONOCYTES % (AUTO) 4.2 % (1.7-9.3); NEUTROPHILS # (AUTO) 6.1 K/uL (1.8-7.7); PLATELET COUNT (AUTO) 189 K/uL (140-450); RED BLOOD CELL COUNT(AUTO) 3.61 MIL/uL (4.20-5.40); RED CELL DISTRIBUTION WIDTH 14.3 % (11.6-13.7); WHITE BLOOD COUNT (AUTO) 6.9 K/uL (4.8-10.8)
[2021-09-28] MEDS: HYDROCORTISONE NA SUCC 100 MG/2 ML VIAL IV SCH ×3 (05:17→20:59)
[2021-09-28] MEDS: POTASSIUM CHLORIDE 10 MEQ TABER PO PRN (05:17)
[2021-09-28 06:37] VITALS: BP 166/92
--- NOTE | 2021-09-28 07:25 | NUR ---
RECEIVED REPORT FROM RADIO ASSEMBLER NURSE FOR CONTINUITY OF CARE. PATIENT JUST ARRIVED FROM ICU. AAOX4, IN STABLE CONDITION. NO DISTRESS NOTED. SKIN INTACT, MAIN CATH IN PLACE, RIGHT UPPER PICC LINE IN PLACE. REVIEWED PLAN OF CARE WITH PATIENT. VERBALIZED UNDERSTANDING. SAFETY MEASURES IN PLACE, CALL LIGHT WITHIN REACH. WILL CONTINUE TO TO MONITOR.
[2021-09-28 08:00] VITALS: BP 154/84
[2021-09-28] MEDS: PANTOPRAZOLE 40 MG INJ VIAL IVP SCH (09:02)
[2021-09-28] MEDS: lisinopriL 20 MG TAB PO SCH (09:03)
[2021-09-28] MEDS: tiZANidine 4 MG TAB PO SCH (09:03)
[2021-09-28] MEDS: amLODIPine 5 MG TAB PO SCH (09:04)
[2021-09-28] MEDS: QUEtiapine FUMARATE 25 MG TAB PO SCH ×2 (09:04→21:00)
[2021-09-28] MEDS: PREGABALIN 50 MG CAP PO SCH ×2 (09:04→20:59)
[2021-09-28] MEDS: NACL 0.9% 1,000 ML IV SCH (09:04)
--- NOTE | 2021-09-28 09:04 | NUR ---
SCHEDULED MEDICATIONS DUE GIVEN. WILL CONTINUE TO MONITOR.
[2021-09-28] MEDS: FUROSEMIDE 20 MG TAB PO SCH (10:35)
--- NOTE | 2021-09-28 11:15 | NUR ---
SPEECH THERAPY AT BEDSIDE PERFORMING EVAL. WILL CONTINUE TO MONITOR.
[2021-09-28 12:00] VITALS: BP 141/82
--- NOTE | 2021-09-28 13:35 | NUR ---
SCHEDULED MEDICATIONS DUE GIVEN. WILL CONTINUE TO MONITOR.
--- NOTE | 2021-09-28 15:30 | NUR ---
09/28/21 RD FOLLOW UP COMPLETED PLEASE REFER TO NUTRITION ASSESSMENT UNDER CARE ACTIVITY FOR ESTIMATED NUTRITIONAL NEEDS. 1. CONTINUE VEGETARIAN REGULAR DIET TOLERATED 2. RD TO FOLLOW-UP 7 DAYS, LOW RISK YULIYA MARTINEZ RD
[2021-09-28 16:00] VITALS: BP 147/90
--- NOTE | 2021-09-28 19:35 | NUR ---
GAVE REPORT TO CONFIGURATION SPECIALIST NURSE FOR CONTINUITY OF CARE. PATIENT IN STABLE CONDITION.
--- NOTE | 2021-09-28 19:36 | NUR ---
RECEIVED REPORT FROM DAY RN. AAOX4, IN STABLE CONDITION. AMB ABLE TO MAKE NEEDS KNOWN. NO DISTRESS NOTED. SKIN INTACT. RIGHT UPPER PICC LINE IN PLACE SL. REVIEWED PLAN OF CARE WITH PATIENT. VERBALIZED UNDERSTANDING. SAFETY MEASURES IN PLACE, CALL LIGHT WITHIN REACH. WILL CONTINUE TO TO MONITOR.
--- NOTE | 2021-09-28 19:50 | NUR ---
PER PSYCH THEY WILL CALL IN 10MIN FACETIME SET IN ROOM AND READY TO GO.
[2021-09-28 20:00] VITALS: BP 150/91
--- NOTE | 2021-09-28 20:59 | NUR ---
STILL WAITING FOR PSYCH CONSULT CALL. IPAD IN ROOM AND READY TO GO. PT REQUESTING AMBIEN FOR INSOMNIA ASK PT TO WAIT AFTER CALL BUT GETTING ANXIOUS WILL ADMIN CARLOS MEDICATIONS NOW AND PRN. PT DENIES ANY SI/HI PER PT SHE TOOK XANAX FEELING DEPRESSED D/T HER MEDICAL CONDITION. PT APPEARS SAD/CRYING DENIES ANY CURRENT SI FOCUSED ON DISCHARGE. POC REVIEWED. ALL NEEDS MET. WILL CONTINUE TO MONITOR.
[2021-09-28] MEDS: ZOLPIDEM 5 MG TAB PO PRN (21:00)
--- NOTE | 2021-09-28 22:05 | NUR ---
ROUNDS MADE. PT APPEARS TO BE ASLEEP. CHEST RISE AND FALL NOTED. WILL CONTINUE TO MONITOR.
--- NOTE | 2021-09-29 00:07 | NUR ---
ROUNDS MADE. PT APPEARS TO BE ASLEEP WITH EYES CLOSED. CHEST RISE AND FALL NOTED. WILL CONTINUE TO MONITOR.
--- NOTE | 2021-09-29 02:01 | NUR ---
ROUNDS MADE. PT APPEARS TO BE ASLEEP WITH EYES CLOSED. CHEST RISE AND FALL NOTED. WILL CONTINUE TO MONITOR.
[2021-09-29 04:00] VITALS: BP 142/86
--- NOTE | 2021-09-29 04:00 | NUR ---
VITAL SIGNS ARE STABLE. ALL NEEDS MET.
[2021-09-29] MEDS: HYDROCORTISONE NA SUCC 100 MG/2 ML VIAL IV SCH ×2 (04:50→13:33)
[2021-09-29 06:52] LABS: ANION GAP 9.5 (8-16); CARBON DIOXIDE 33.3 mmol/L (21-32); CREATININE 0.5 mg/dL (0.6-1.3); HEMATOCRIT 35.6 % (36-48); HEMOGLOBIN 11.8 g/dL (12.0-16.0); MEAN CORPUSCULAR HEMOGLOBIN 28 pg (27-31); MEAN CORPUSCULAR HGB CONC 33 g/dL (33-37); MEAN CORPUSCULAR VOLUME 84.4 fL (80-94); PLATELET COUNT (AUTO) 230 K/uL (140-450); RED BLOOD CELL COUNT(AUTO) 4.21 MIL/uL (4.20-5.40); RED CELL DISTRIBUTION WIDTH 14.4 % (11.6-13.7); WHITE BLOOD COUNT (AUTO) 8.1 K/uL (4.8-10.8)
[2021-09-29 06:56] LABS: POTASSIUM 2.8 mmol/L (3.5-5.1)
[2021-09-29] MEDS: POTASSIUM CHLORIDE 10 MEQ TABER PO PRN (07:05)
[2021-09-29] MEDS ORDERED: POTASSIUM CHLORIDE 10 MEQ TABER PO SCH (07:12)
--- NOTE | 2021-09-29 07:39 | NUR ---
BEDSIDE REPORT GIVEN TO DAY RN. PT IN STABLE CONDITION.
--- NOTE | 2021-09-29 07:40 | NUR ---
RECEIVED REPORT FROM QUILTER FIXER NURSE FOR CONTINUITY OF CARE. PT IS AWAKE, SITTING AT BEDSIDE. RESPIRATIONS EVEN AND UNLABORED ON RA. NO DISTRESS NOTED. A&O4, ABLE TO COMMUNICATE NEEDS. PT HAS ALEJO MIDLINE 2X LUMEN, SL. SKIN IS INTACT, WARM AND DRY TO TOUCH. AWAITING FOR TELE PSYCHE CONSULT TODAY. CALL LIGHT WITHIN REACH. SAFETY PRECAUTIONS IN PLACE. WILL CONTINUE TO MONITOR.
[2021-09-29 07:48] LABS: EOSINOPHILS % (MANUAL) 1 % (0-4); LYMPHOCYTES % (MANUAL) 10 % (20-46); MONOCYTES % (MANUAL) 3 % (5-12)
[2021-09-29 08:00] VITALS: BP 161/95
--- NOTE | 2021-09-29 08:09 | NUR ---
RECEIVED REPORT FROM SWEATER DESIGNER FOR CONTINUITY OF CARE. PT IS STABLE. PLAN OF CARE DISCUSSED.
[2021-09-29] MEDS: QUEtiapine FUMARATE 25 MG TAB PO SCH (08:48)
[2021-09-29] MEDS: PREGABALIN 50 MG CAP PO SCH (08:48)
[2021-09-29] MEDS: tiZANidine 4 MG TAB PO SCH (08:48)
[2021-09-29] MEDS: lisinopriL 20 MG TAB PO SCH (08:49)
[2021-09-29] MEDS: FUROSEMIDE 20 MG TAB PO SCH (08:49)
[2021-09-29] MEDS: amLODIPine 5 MG TAB PO SCH (08:49)
--- NOTE | 2021-09-29 09:00 | NUR ---
ADMINISTERED SCHEDULED MORNING MEDS. PT TEACHING ABOUT MEDS GIVEN. PT VERBALIZED UNDERSTANDING. DISCUSSED WITH PT THE POC. PT COMPLAINING OF RASHES O HER PERINEAL AREA. PT STATED IT HURTS WHEN SHE VOID. WILL COMMUNICATE WITH THE DR. LEFT PT WITH FAMILY MEMBER AT BEDSIDE. CALL LIGHT WITHIN REACH. SAFETY PRECAUTIONS IN PLACE.
--- NOTE | 2021-09-29 09:07 | NUR ---
RECEIVED AN ORDER FROM FOR URINALYSIS.
[2021-09-29] MEDS: PANTOPRAZOLE 40 MG INJ VIAL IVP SCH (09:45)
--- NOTE | 2021-09-29 10:06 | NUR ---
IV PROTONIX ADMINISTERED BY MARYCRUZ DODSON.
[2021-09-29 11:40] LABS: BILIRUBIN,URINE NEGATIVE (NEGATIVE); BLOOD, URINE NEGATIVE (NEGATIVE); COLOR,URINE YELLOW (YELLOW); LEUKOCYTE ESTERASE ,URINE 2+ (NEGATIVE); NITRITE, URINE NEGATIVE (NEGATIVE); PH,URINE 6.5 (5.0-9.0); UGLUCOSE TRACE (NEGATIVE)
[2021-09-29 11:41] LABS: APPEARANCE,URINE HAZY (CLEAR)
[2021-09-29 11:47] LABS: CALCIUM OXALATE CRYSTALS,UR None Seen /HPF (None Seen); COARSE GRANULAR CASTS,URINE None Seen /LPF (None Seen); FINE GRANULAR CASTS,URINE None Seen /LPF (None Seen); HYALINE CASTS, URINE None Seen /LPF (None Seen); OTHER CASTS, URINE None Seen /LPF (None Seen); OTHER CRYSTALS,URINE None Seen /HPF (None Seen); RBC,URINE 0-5 /HPF (0-5); RED BLOOD CELL CASTS,URINE None Seen /LPF (None Seen); TRICHOMONAS,URINE None Seen /HPF (None Seen); TRIPLE PHOSPHATE CRYSTAL,UR None Seen /HPF (None Seen); URIC ACID CRYSTALS,URINE None Seen /HPF (None Seen); URINE AMORPHOUS URATE None Seen /HPF (None Seen); WAXY CASTS,URINE None Seen /LPF (None Seen); YEAST,URINE Few /HPF (None Seen)
--- NOTE | 2021-09-29 13:15 | NUR ---
PT HAVING TELE-PSYCHE CONSULT.
--- NOTE | 2021-09-29 13:40 | NUR ---
JAMES ADMINISTERED BY MARYCRUZ DODSON.
[2021-09-29] MEDS ORDERED: FURO20TA8 PO (15:06)
[2021-09-29] MEDS ORDERED: LISI20TA29 PO (15:06)
[2021-09-29] MEDS ORDERED: QUET25TA46 PO (15:06)
[2021-09-29] MEDS ORDERED: AMLO-3 PO (15:06)
--- NOTE | 2021-09-29 16:12 | NUR ---
INFORMED PT ABOUT THE DC ORDER. PT VERBALIZED UNDERSTANDING. PT GETTING READY TO GO HOME. NO DISTRESS NOTED. BREATHING EVEN AND UNLABORED. NO COMPLAINTS OF PAIN. SAFETY PRECAUTIONS IN PLACE.
--- NOTE | 2021-09-29 17:20 | NUR ---
DISCHARGE PAPER DISCUSSED WITH THE PT. PT VERBALIZED UNDERSTANDING. MIDLINE CATHETER IS INTACT. IV WRIST BAND REMOVED. ALL PT BELONGINGS TAKEN UPON DC. PT WHEELED OUT VIA WHEELCHAIR BY PT FRIEND AND NURSE TO THE FRONT LOBBY. PT DC HOME. PT IS STABLE.
[2021-09-29] MEDS ORDERED: QUEtiapine FUMARATE 25 MG TAB PO SCH (21:00)
== END 2021-09-29 17:20 | disposition home or self-care (01) | DRG 817 ==
LOC: MED 02:10 → MMU 05:19 → MIC 16:05 → MTU 09-28 07:00
PROVIDERS: ADMIT Family Medicine; ATTEND Family Medicine
PROC: 5A1945Z Respiratory Ventilation, 24-96 Consecutive Hours (ICD-10-PCS; principal; 2021-09-23)
PROC: 0BH17EZ Insertion of Endotracheal Airway into Trachea, Via Natural or Artificial Opening (ICD-10-PCS; 2021-09-23)
PROC: 05HY33Z Insertion of Infusion Device into Upper Vein, Percutaneous Approach (ICD-10-PCS; 2021-09-25)
PROC: B54MZZA Ultrasonography of Right Upper Extremity Veins, Guidance (ICD-10-PCS; 2021-09-25)
DX: T42.4X2A Poisoning by benzodiazepines, intentional self-harm, initial encounter (principal); J96.00 Acute respiratory failure, unspecified whether with hypoxia or hypercapnia; G92.9 Unspecified toxic encephalopathy; J18.9 Pneumonia, unspecified organism; E44.1 Mild protein-calorie malnutrition; E86.0 Dehydration; F12.10 Cannabis abuse, uncomplicated; F15.10 Other stimulant abuse, uncomplicated; N39.0 Urinary tract infection, site not specified; E27.40 Unspecified adrenocortical insufficiency; E07.9 Disorder of thyroid, unspecified; Z20.822 Contact with and (suspected) exposure to COVID-19; D64.9 Anemia, unspecified; E78.5 Hyperlipidemia, unspecified; Z68.23 Body mass index [BMI] 23.0-23.9, adult; Y92.89 Other specified places as the place of occurrence of the external cause
CPT/HCPCS: 36415; 36600; 70450; 71045; 80048; 80053; 80305; 81001; 82150; 82803; 83036; 83605; 83690; 83735; 83880; 84100; 84436; 84439; 84443; 84479; 84484; 85025; 85610; 85730; 87040; 87070; 87081; 87086; 87205; 89220; 92526; 93005; 94002; 94003; 96361; 96365; 97110; 97112; 97116; 97163-GP; 97530; 99291; C9113; G0480; G0482; J0360; J0696; J1630; J1720; J2001; J2060; J2270; J2310; J2405; J2543; J2704; J3480; J7030; J7060; Q0092